=== PATIENT | female | born 1960 | race American Indian/Alaskan Native ===

== ENCOUNTER 2016-09-16 20:57 | Emergency (ER) | payer OTHER ==
[2016-09-16 21:35] VITALS: BP 117/82
[2016-09-16] MEDS ORDERED: VEETIDS PO ONE (22:44)
--- NOTE | 2016-09-16 22:44 | Emergency Department Report ---
HPI - General Chief Complaint: Dental/Oral Time Seen by Provider: 09/16/16 22:30 - HPI HPI: This is a 56-year-old Afro-[place] female presents to the emergency department with 2 different areas in the upper jaw that she has concern for toothache and possible dental abscess. The toothache has been going on for about 2 weeks. The areas that are affected the upper left posterior molar and the upper right lateral incisor, which is also broken. The patient tried some Motrin for pain without much relief. She denies any swelling of the tongue, throat, drooling, fever, nausea, vomiting or any restaurant distress. She does not have a primary care doctor or dentist. She is a tobacco smoker. No recent travel or sick contacts at home. ED Past Medical Hx - Past Medical History Previous Medical History?: No - Surgical History Past Surgical History?: No - Social History Smoking Status: Current Every Day Smoker Substance Use Type: None - Medications Home Medications: Home Medications Medication Instructions Recorded Confirmed Last Taken Type HYDROcodone/APAP 5-325 [[place] 1 each PO Q6HR PRN #8 tablet 09/16/16 Unknown Rx 5/325] Penicillin Vk [Veetids TAB] 500 mg PO BID #40 tablet 09/16/16 Unknown Rx ED Review of Systems ROS: Stated complaint: TOOTH ABCESS Other details as noted in HPI Comment: All other systems reviewed and negative Constitutional: denies: chills, fever Eyes: denies: eye pain, eye discharge, vision change ENT: dental pain. denies: throat pain Respiratory: denies: cough, shortness of breath, wheezing Cardiovascular: denies: chest pain, palpitations Gastrointestinal: denies: abdominal pain, nausea, diarrhea Genitourinary: denies: urgency, dysuria, discharge Musculoskeletal: denies: back pain, joint swelling, arthralgia Skin: denies: rash, lesions Neurological: denies: headache, weakness, paresthesias Physical Exam - Physical Exam Vital Signs: Vital Signs 09/16/16 21:32 Temperature 98.9 F Pulse Rate 65 Respiratory 20 Rate Blood Pressure 117/82 O2 Sat by Pulse 100 Oximetry Physical Exam: GENERAL: The patient is well-developed well-nourished. HEENT: Normocephalic. Atraumatic. Extraocular motions are intact. Patient has moist mucous membranes. Oropharynx clear without tonsillar hypertrophy, erythema or exudates. She has tenderness to palpation along the upper mid and left posterior jaw but no palpable or visible abscess. She does have a broken tooth to the right lateral incisor. There appears to be a wisdom tooth coming in to the left posterior jaw. No drooling or trismus. NECK: Supple. Trachea is midline. CHEST/LUNGS: Clear to auscultation. There is no respiratory distress noted. HEART/CARDIOVASCULAR: Regular. There is no tachycardia. There is no gallop rub or murmur. ABDOMEN: Abdomen is soft, nontender. Patient has normal bowel sounds. There is no abdominal distention. SKIN: There is no rash. There is no edema. There is no diaphoresis. NEURO: The patient is awake, alert, and oriented. The patient is cooperative. The patient has no focal neurologic deficits. The patient has normal speech. MUSCULOSKELETAL: There is no tenderness or deformity. There is no limitation range of motion. There is no evidence of acute injury. ED Course Vital Signs 09/16/16 21:32 Temperature 98.9 F Pulse Rate 65 Respiratory 20 Rate Blood Pressure 117/82 O2 Sat by Pulse 100 Oximetry ED Medical Decision Making - Medical Decision Making 56-year-old female presents with 2 week history of dental pain. No visible or palpable tooth abscess. Patient was given a small amount of pain medication and antibiotics. No drooling or trismus or airway compromise. She was given referrals for dental clinics. She will return to the ER if any worsening of her symptoms or any acute distress. - Differential Diagnosis toothache, dental abscess, wisdom tooth Critical Care Time: No Critical care attestation.: If time is entered above; I have spent that time in minutes in the direct care of this critically ill patient, excluding procedure time. ED Disposition Clinical Impression: Toothache, Jaw pain Disposition: [id number] TO HOME OR SELFCARE Is pt being admited?: No Condition: Stable Instructions: Dental Caries (ED), Toothache (ED) Additional Instructions: Please follow-up with a primary care doctor and a dentist in the next few days. Return to the emergency department with any worsening of your symptoms or any acute distress. You've been prescribed a medication that is sedating. Therefore this medication cannot be mixed with alcohol, or taken prior to driving, working, or being responsible for children. Prescriptions: HYDROcodone/APAP 5-325 [[place] 5/325] 1 each PO Q6HR PRN #8 tablet PRN Reason: Pain Penicillin Vk [Veetids TAB] 500 mg PO BID #40 tablet Referrals: [facility] [Outside] - 3-5 Days [facility] [Outside] - 3-5 Days Time of Disposition: 22:44
== END 2016-09-16 23:32 | disposition home or self-care (01) ==
LOC: ED 20:57
DX: K08.89 Other specified disorders of teeth and supporting structures (principal); R68.84 Jaw pain; F17.200 Nicotine dependence, unspecified, uncomplicated
CPT/HCPCS: 99282

== ENCOUNTER 2016-09-20 14:33 | Emergency (ER) | payer OTHER ==
[2016-09-20 15:13] VITALS: BP 105/77
[2016-09-20] MEDS ORDERED: MOTRIN PO ONE (16:16)
--- NOTE | 2016-09-20 18:28 | Emergency Department Report ---
Entered by TARA BARR, acting as scribe for NITISH BURTON NP. ED ENT HPI - General Chief complaint: Dental/Oral Stated complaint: TOOTH ABSCESS Time Seen by Provider: 09/20/16 15:49 Source: patient Mode of arrival: Ambulatory Limitations: No Limitations - History of Present Illness Initial comments: 56 y/o female nontoxic, well nourished in appearance, no acute signs of distress presents with constant, achy, 9/10 dental abscess that started 2 days ago. Sx Patient denies TALBERT, SOB, dizziness, chest pain, abd pain, n/v, pus, drainage, fever or chills. Pt was seen at [facility]- ED 2 days ago and prescribed Penicillin with no relief. She notes having an appt with her dentist on . NKDA. VARGHESE complaint: tooth pain (tooth number 6, Fx tooth) -: days(s) (2) Location: tooth # (6 is fractured) Severity: severe Severity scale (0 -10): 9 Quality: aching Consistency: constant Improves with: none Worsens with: none Context- Dental: history of dental caries, poor dental care Associated Symptoms: toothache, pain with swallowing. denies: fever, cough, gum swelling, sore throat, tinnitus, hearing loss, discharge from ear, rhinorrhea - Related Data Previous Rx's Medication Instructions Recorded Last Taken Type HYDROcodone/APAP 5-325 [[place] 1 each PO Q6HR PRN #8 tablet 09/16/16 Unknown Rx 5/325] Amoxicillin/K Clav Tab [Augment[place] 1 tab PO Q12HR #20 tab 09/20/16 Unknown Rx 875 mg] Ibuprofen [Motrin 600 MG tab] 600 mg PO Q8H PRN #15 tablet 09/20/16 Unknown Rx Allergies Allergy/AdvReac Type Severity Reaction Status Date / Time No Known Allergies Allergy Verified 09/16/16 21:32 ED Dental HPI - General Chief complaint: Dental/Oral Stated complaint: TOOTH ABSCESS Time Seen by Provider: 09/20/16 15:49 Source: patient Mode of arrival: Ambulatory Limitations: No Limitations - Related Data Previous Rx's Medication Instructions Recorded Last Taken Type HYDROcodone/APAP 5-325 [[place] 1 each PO Q6HR PRN #8 tablet 09/16/16 Unknown Rx 5/325] Amoxicillin/K Clav Tab [Augmentin 1 tab PO Q12HR #20 tab 09/20/16 Unknown Rx 875 mg] Ibuprofen [Motrin 600 MG tab] 600 mg PO Q8H PRN #15 tablet 09/20/16 Unknown Rx Allergies Allergy/AdvReac Type Severity Reaction Status Date / Time No Known Allergies Allergy Verified 09/16/16 21:32 ED Review of Systems Comment: All other systems reviewed and negative Constitutional: denies: chills, fever Eyes: denies: eye pain, eye discharge, vision change ENT: dental pain (Fx tooth number 6). denies: ear pain, throat pain Respiratory: denies: cough, shortness of breath, wheezing Cardiovascular: denies: chest pain, palpitations Endocrine: no symptoms reported Gastrointestinal: denies: abdominal pain, nausea, diarrhea Genitourinary: denies: urgency, dysuria, discharge Musculoskeletal: denies: back pain, joint swelling, arthralgia Skin: denies: rash, lesions Neurological: denies: headache, weakness, paresthesias Psychiatric: denies: anxiety, depression Hematological/Lymphatic: denies: easy bleeding, easy bruising ED Past Medical Hx - Past Medical History Previous Medical History?: No - Surgical History Past Surgical History?: No - Social History Smoking Status: Current Every Day Smoker Substance Use Type: None - Medications Home Medications: Home Medications Medication Instructions Recorded Confirmed Last Taken Type HYDROcodone/APAP 5-325 [[place] 1 each PO Q6HR PRN #8 tablet 09/16/16 Unknown Rx 5/325] Amoxicillin/K Clav Tab [Augmentin 1 tab PO Q12HR #20 tab 09/20/16 Unknown Rx 875 mg] Ibuprofen [Motrin 600 MG tab] 600 mg PO Q8H PRN #15 tablet 09/20/16 Unknown Rx ED Physical Exam - General Limitations: No Limitations General appearance: alert, in no apparent distress - Head Head exam: Present: atraumatic, normocephalic - Eye Eye exam: Present: normal appearance, PERRL, EOMI Pupils: Present: normal accommodation - ENT ENT exam: Present: normal exam, normal orophraynx, mucous membranes moist, TM's normal bilaterally, normal external ear exam. Absent: mucous membranes dry - Expanded ENT Exam Expanded Ear exam: Present: normal external inspection Mouth exam: Present: normal external inspection, tongue normal. Absent: drooling, trismus, muffled voice, tongue elevation, laceration Teeth exam: Present: dental caries (severe), fractured tooth # (6), dental tenderness # (6), other (1cm dental abscess tooth number 6, gingivitis) Throat exam: Positive: normal inspection. Negative: tonsillar erythema, tonsillomegaly, tonsillar exudate, R peritonsillar mass, L peritonsillar mass - Neck Neck exam: Present: normal inspection, full ROM. Absent: tenderness, meningismus, lymphadenopathy, thyromegaly - Respiratory Respiratory exam: Present: normal lung sounds bilaterally. Absent: respiratory distress, wheezes, rales, rhonchi, stridor - Cardiovascular Cardiovascular Exam: Present: regular rate, normal rhythm, normal heart sounds. Absent: bradycardia, tachycardia, irregular rhythm, systolic murmur, diastolic murmur, rubs, gallop - GI/Abdominal GI/Abdominal exam: Present: soft, normal bowel sounds. Absent: distended, tenderness, guarding, rebound, rigid, diminished bowel sounds - Extremities Exam Extremities exam: Present: normal inspection, full ROM, normal capillary refill. Absent: tenderness, pedal edema, joint swelling, calf tenderness - Back Exam Back exam: Present: normal inspection, full ROM. Absent: tenderness, CVA tenderness (R), CVA tenderness (L), muscle spasm, paraspinal tenderness, vertebral tenderness, rash noted - Neurological Exam Neurological exam: Present: alert, oriented X3, CN II-XII intact, normal gait, reflexes normal. Absent: altered, abnormal gait, motor sensory deficit - Psychiatric Psychiatric exam: Present: normal affect, normal mood. Absent: depressed, agitated, anxious, flat affect, manic, homicidal ideation, suicidal ideation - Skin Skin exam: Present: warm, dry, intact, normal color. Absent: rash ED Course Vital Signs 09/20/16 15:11 Temperature 98.5 F Pulse Rate 87 Respiratory 16 Rate Blood Pressure 105/77 O2 Sat by Pulse 98 Oximetry ED Medical Decision Making - Medical Decision Making Ed course: This is a 56-year-old female that presents with mutiple dental carries and poor dental hygiene 1- after my physical exam, patient was instructed to discontinue PCN and take Augmentin as prescribed. 2- patient received ibuprofen 800 mg by mouth in ED. 3- patient was instructed to observe symptoms of pus, drainage, fever, chills, stiff neck, nausea or vomiting chest pain and shortness of breath and reports emergency room as soon as possible if symptoms present. 4- at time time of discharge, the patient does not seem toxic or ill in appearance. No acute signs of distress noted. Patient agrees to discharge treatment plan of care. No further questions noted by the patient. 5- patient was referred to dentist to follow-up within 24 hours. ED Disposition Clinical Impression: Dental caries, Gingivitis Disposition: TO HOME OR SELFCARE Is pt being admited?: No Does the pt Need Aspirin: No Condition: Stable Instructions: Gingivitis (ED), Dental Caries (ED), Amoxicillin/Clavulanate Potassium (By mouth), Ibuprofen (By mouth) Additional Instructions: observe symptoms of pus, drainage, fever, chills, stiff neck, nausea or vomiting chest pain and shortness of breath and reports emergency room as soon as possible if symptoms present. Discontinue penicillin and take Augmentin as prescribed. You may take ibuprofen as prescribed as needed for pain. Prescriptions: Amoxicillin/K Clav Tab [Augmentin 875 mg] 1 tab PO Q12HR #20 tab Ibuprofen [Motrin 600 MG tab] 600 mg PO Q8H PRN #15 tablet PRN Reason: Pain Referrals: PRIMARY CARE,MD [Primary Care Provider] - 3-5 Days [facility] [Outside] - 3-5 Days [facility] [Outside] - 24 Hours Forms: Work/School Release Form(ED) This documentation as recorded by the CORTNEY steve RYAN,accurately reflects the service I personally performed and the decisions made by ,NITISH BURTON, DAY.
== END 2016-09-20 16:45 | disposition home or self-care (01) ==
LOC: ED 14:33
DX: K05.10 Chronic gingivitis, plaque induced (principal); K02.9 Dental caries, unspecified; F17.200 Nicotine dependence, unspecified, uncomplicated
CPT/HCPCS: 99282